=== PATIENT | male | born 1975 | race African-American/Black ===

== ENCOUNTER → 2018-12-26 | Day surgery (SDC) | payer BC ==
[~2018-12-26] MED LIST: FENTANYL CITRATE/PF 100MCG/2 ML INJ ONE; HYOSCYAMINE 0.125 MG TAB ONE; MIDAZOLAM HCL 5MG/ML 2ML VIAL ONE; NORCO 5-325 TA1 EACH PO; ONDANSETRON2 MG/1 ML PO; PREDNISONE20 MG PO; PROPOFOL IV EMULSION 10 MG/ML 50 ML VIAL ONE
--- OUTSIDE RECORDS SUMMARY | 2018-12-26 09:01 | XMS REPORT ---
Author Author [facility] Address Unknown Phone Unavailable Care Team Providers Care Land Agent Name Role Phone DR HEIDI ARGUETA(F[place]) Unavailable Unavailable Problems This patient has no known problems. Allergies, Adverse Reactions, Alerts This patient has no known allergies or adverse reactions. Medications This patient has no known medications. Encounters Start Date/Time End Date/Time Encounter Type Admission Type Attending Clinicians Care Facility Care Department Encounter ID 2017-09-30 12:45:00 2017-09-30 15:50:00 Outpatient C CONRADO ARGUETA) [facility] [place] [facility] [id number]
[2018-12-26 14:52] LABS: WBC,FECAL (FECAL LACTOFERRIN) NEGATIVE (NEGATIVE)
--- NOTE | 2018-12-26 15:34 | Operative Report ---
DATE OF PROCEDURE: 12/26/2018 SURGEON: Anatoly Mobley MD PROCEDURE: Colonoscopy with polypectomy and biopsies. INDICATIONS FOR COLONOSCOPY: Recurrent rectal bleeding. MEDICATIONS: The patient was done under MAC, please see anesthesiologist's note. PROCEDURE IN DETAIL: With the patient in left lateral decubitus position, a flexible fiberoptic Olympus colonoscope was inserted into the rectum with ease and advanced all the way to the cecum. Ileocecal valve was intubated and the scope was advanced into the terminal ileum. Biopsies were obtained. The scope was then withdrawn back into the colon and mucosa overlying the cecum, ascending colon grossly appeared to be within normal limits. One polyp was hot snared and one polyp was hot biopsied from the transverse colon. There was some patchy mild inflammatory changes noted in the left colon, multiple random biopsies were obtained. Mucosa overlying the rectum grossly appeared to be within normal limits. The scope was then retroflexed into the distal rectum and large internal hemorrhoids were noted, which intermittently prolapsed. There was no active bleeding. The scope was then straightened out, it was subsequently withdrawn. The patient tolerated the procedure well. IMPRESSION: 1. Transverse colon polyps x2, one hot snared and one hot biopsied. 2. Mild patchy left-sided colitis. 3. Large internal hemorrhoids, none actively bleeding. PLAN: Follow up histology. Follow up stool studies. Initiate Anucort-HC Suppository b.i.d. x10 days and p.r.n. VSL#3 one p.o. b.i.d. Check sedimentation rate, CRP, and IBD panel. The patient will probably need a hemorrhoidectomy. Anatoly Mobley MD [facility] [place] /[id number]
[2018-12-27 13:35] LABS: C DIFFICILE TOXIN A&B AMP PROB NEGATIVE (NEGATIVE)
== END | disposition home or self-care (01) ==
LOC: OR 08:58
PROVIDERS: ATTEND Internal Medicine Gastroenterology
DX: K51.50 Left sided colitis without complications (principal); D12.3 Benign neoplasm of transverse colon; K64.8 Other hemorrhoids; F17.210 Nicotine dependence, cigarettes, uncomplicated; Z01.810 Encounter for preprocedural cardiovascular examination
CPT/HCPCS: 36415; 45380; 45384; 45385; 83630; 83993; 85651; 86140; 86256; 86671; 87045; 87177; 87328; 87493; 93005; J2250; J2704; J3010